=== PATIENT | female | born 1960 | race Caucasian/White ===

== ENCOUNTER 2017-10-26 23:10 | Observation (INO) | payer MEDICARE, OTHER ==
[2017-10-26 23:42] LABS: Basophils % (A) 1 %; Eosinophils # (A) 0.3 k/uL (0-0.7); Eosinophils % (A) 3 %; HCT 35.9 % (34.0-46.0); HGB 12.3 gm/dL (11.4-16.0); Lymphocytes # (A) 1.3 k/uL (1.0-4.8); Lymphocytes % (A) 16 %; MCHC 34.4 g/dL (31.0-37.0); MCV 87.3 fL (80.0-100.0); Mean Platelet Volume 6.2; Monocytes # (A) 0.4 k/uL (0-1.0); Monocytes % (A) 5 %; Neutrophils % (A) 74 %; Platelet Count 395 k/uL (150-450); RBC 4.11 m/uL (3.80-5.40); RDW 12.7 % (11.5-15.5); WBC 8.1 k/uL (3.8-10.6)
[2017-10-26 23:53] LABS: ALT 12 U/L (9-52); AST 10 U/L (14-36); Albumin 3.2 g/dL (3.5-5.0); Alkaline Phosphatase 72 U/L (38-126); Anion Gap 11 mmol/L; Blood Urea Nitrogen 8 mg/dL (7-17); Calcium 8.7 mg/dL (8.4-10.2); Carbon Dioxide 26 mmol/L (22-30); Chloride 103 mmol/L (98-107); Glucose 131 mg/dL (74-99); Lipase 30 U/L (23-300); Potassium 3.6 mmol/L (3.5-5.1); Sodium 140 mmol/L (137-145); Total Bilirubin 0.2 mg/dL (0.2-1.3); Total Protein 5.5 g/dL (6.3-8.2)
[2017-10-26 23:56] LABS: Creatine Kinase 47 U/L (30-135)
[2017-10-26 23:59] LABS: D-Dimer 0.49 mg/L FEU (<0.60); Partial Thromboplastin Time 25.9 sec (22.0-30.0); Prothrombin Time 9.7 sec (9.0-12.0)
--- NOTE | 2017-10-27 00:02 | CT ---
EXAMINATION TYPE: CT brain kaye bird DATE OF EXAM: 10/26/2017 COMPARISON: NONE HISTORY: fall yesterday, neck pain CT DLP: 1259.40 mGycm Automated exposure control for dose reduction was used. TECHNIQUE: CT scan of the head and cervical spine are performed without contrast. FINDINGS: There is a 1 cm area of hypodensity in the left caudate nucleus related to old lacunar in farct. The ventricles have normal size. There is no midline shift. There is no sign of intracranial h emorrhage. The calvarium is intact. There is mild pleural thickening at the lung apices. The cervical vertebra have normal alignment. The re is hypertrophic anterior spurring at C4-5 C5-6. There is no evidence of a fracture. Facet joints a re intact. IMPRESSION: Old lacunar infarct left internal capsule and left caudate nucleus. No acute intracranial abnormality . Spondylosis in the cervical spine as above. No fracture. Apical pleural and pulmonary scarring in bot h upper lobes.
--- NOTE | 2017-10-27 00:04 | XR ---
EXAMINATION TYPE: XR chest 2V DATE OF EXAM: 10/26/2017 COMPARISON: NONE HISTORY: Chest pain TECHNIQUE: Frontal and lateral views of the chest are obtained. FINDINGS: Heart is normal. There is some infiltrate in the right middle lobe. There is no pleural ef fusion. There is no heart failure. There is some mild pleural thickening at the lung apices. There ar e chest leads. There is slight blunting of the costophrenic angles. IMPRESSION: Right middle lobe pneumonia. Apical pleural scarring. No gross heart failure.
[2017-10-27 00:09] LABS: Creatine Kinase MB 0.7 ng/mL (0.0-2.4); Troponin I <0.012 ng/mL (0.000-0.034)
--- NOTE | 2017-10-27 00:09 | ED ---
General Adult HPI - General Chief complaint: Chest Pain Stated complaint: chest pain, neck pain Time Seen by Provider: 10/26/17 23:25 Source: patient, EMS, RN notes reviewed Mode of arrival: EMS Limitations: no limitations - History of Present Illness Initial comments: 57-year-old female presenting for evaluation of chest pain and neck pain. Patient states she had a fall yesterday evening. She is on certain if she lost consciousness but she has had neck pain throughout the day today. She also has some right lateral chest pain. Approximately one hour prior to arrival patient developed sharp anterior chest pain just to the left of the sternum. Pain was nonradiating. No nausea or diaphoresis. Patient denies back pain, denies abdominal pain. Denies vomiting or diarrhea. Patient has no focal neurological complaints. Denies lower extremity swelling or calf tenderness. No history of CAD, no history of DVT or PE. Patient is currently on Percocet and methadone for chronic pain. - Related Data Home Medications Medication Instructions Recorded Confirmed Cyclobenzaprine [Flexeril] 10 mg PO BID 10/26/17 10/26/17 Methadone [Dolophine] 10 mg PO TID 10/26/17 10/26/17 Ranitidine HCl [Zantac] 150 mg PO BID 10/26/17 10/26/17 clonazePAM [KlonoPIN] 1 mg PO BID 10/26/17 10/26/17 oxyCODONE-APAP 10-325MG [Percocet 1 tab PO QID PRN 10/26/17 10/26/17 10-325 mg] Allergies Allergy/AdvReac Type Severity Reaction Status Date / Time Penicillins Allergy Unknown Verified 10/26/17 23:27 Childhood Review of Systems ROS Statement: Those systems with pertinent positive or pertinent negative responses have been documented in the HPI. ROS Other: All systems not noted in ROS Statement are negative. Past Medical History Past Medical History: Hypertension, Musculoskeletal Disorder History of Any Multi-Drug Resistant Organisms: None Reported Past Surgical History: Back Surgery, Cholecystectomy, Hysterectomy, Tonsillectomy Past Psychological History: Anxiety, Depression Smoking Status: Current some day smoker Past Alcohol Use History: None Reported Past Drug Use History: None Reported General Exam Limitations: no limitations General appearance: alert, in no apparent distress Head exam: Present: atraumatic, normocephalic Eye exam: Present: normal appearance, PERRL, EOMI ENT exam: Present: normal exam Neck exam: Present: normal inspection, tenderness (Paraspinal tenderness to palpation, no midline tenderness) Respiratory exam: Present: normal lung sounds bilaterally, chest wall tenderness (Right lateral chest wall tenderness and anterior sternal tenderness to palpation). Absent: respiratory distress, wheezes, rales Cardiovascular Exam: Present: regular rate, normal rhythm GI/Abdominal exam: Present: soft. Absent: distended, tenderness Extremities exam: Present: normal inspection, full ROM, normal capillary refill. Absent: tenderness, pedal edema, calf tenderness Neurological exam: Present: alert, oriented X3, CN II-XII intact. Absent: motor sensory deficit Psychiatric exam: Present: normal affect, normal mood Skin exam: Present: warm, dry, intact. 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 Medical Decision Making - Medical Decision Making 57-year-old female presenting with chief complaint of sharp anterior chest pain. Patient had a fall yesterday and was also complaining of neck pain and was uncertain if she lost consciousness. Head CT was obtained, this is negative for intracranial hemorrhage, does show internal capsule and lacunar infarct which appears old on CT. CT the cervical spine negative for fracture subluxation, there is significant arthritis in the cervical spine. Regarding the patient's chest pain, she has EKG showing normal sinus rhythm with Q waves in the inferior leads, no ST segment elevation. Laboratory studies reveal normal white blood cell count, stable hemoglobin, normal d-dimer, troponin is negative, electrolytes within normal limits. Chest x-ray negative pulmonary edema, she does have right little lobe pneumonia, on questioning she has had a mild cough, no fever, and she is a current smoker. I feel patient will benefit from admission for workup of her multiple issues. Case discussed with Dr. Isidro who will accept admission - Lab Data Result diagrams: 10/26/17 23:30 10/26/17 23:30 Lab Results 10/26/17 10/26/17 10/26/17 Range/Units 23:30 23:30 23:30 WBC 8.1 (3.8-10.6) k/uL RBC 4.11 (3.80-5.40) m/uL Hgb 12.3 (11.4-16.0) gm/dL Hct 35.9 (34.0-46.0) % MCV 87.3 (80.0-100.0) fL MCH 30.0 (25.0-35.0) pg MCHC 34.4 (31.0-37.0) g/dL RDW 12.7 (11.5-15.5) % Plt Count 395 (150-450) k/uL Neutrophils % 74 % Lymphocytes % 16 % Monocytes % 5 % Eosinophils % 3 % Basophils % 1 % Neutrophils # 6.0 (1.3-7.7) k/uL Lymphocytes # 1.3 (1.0-4.8) k/uL Monocytes # 0.4 (0-1.0) k/uL Eosinophils # 0.3 (0-0.7) k/uL Basophils # 0.0 (0-0.2) k/uL PT (9.0-12.0) sec INR (<1.2) APTT (22.0-30.0) sec D-Dimer (<0.60) mg/L FEU Sodium 140 (137-145) mmol/L Potassium 3.6 (3.5-5.1) mmol/L Chloride 103 (98-107) mmol/L Carbon Dioxide 26 (22-30) mmol/L Anion Gap 11 mmol/L BUN 8 (7-17) mg/dL Creatinine 0.70 (0.52-1.04) mg/dL Est GFR (CKD-EPI)AfAm >90 (>60 ml/min/1.73 sqM) Est GFR (CKD-EPI)NonAf >90 (>60 ml/min/1.73 sqM) Glucose 131 H (74-99) mg/dL Calcium 8.7 (8.4-10.2) mg/dL Magnesium 2.0 (1.6-2.3) mg/dL Total Bilirubin 0.2 (0.2-1.3) mg/dL AST 10 L (14-36) U/L ALT 12 (9-52) U/L Alkaline Phosphatase 72 (38-126) U/L Total Creatine Kinase 47 (30-135) U/L CK-MB (CK-2) 0.7 (0.0-2.4) ng/mL CK-MB (CK-2) Rel Index 1.5 Troponin I <0.012 (0.000-0.034) ng/mL Total Protein 5.5 L (6.3-8.2) g/dL Albumin 3.2 L (3.5-5.0) g/dL Lipase 30 (23-300) U/L 10/26/17 Range/Units 23:30 WBC (3.8-10.6) k/uL RBC (3.80-5.40) m/uL Hgb (11.4-16.0) gm/dL Hct (34.0-46.0) % MCV (80.0-100.0) fL MCH (25.0-35.0) pg MCHC (31.0-37.0) g/dL RDW (11.5-15.5) % Plt Count (150-450) k/uL Neutrophils % % Lymphocytes % % Monocytes % % Eosinophils % % Basophils % % Neutrophils # (1.3-7.7) k/uL Lymphocytes # (1.0-4.8) k/uL Monocytes # (0-1.0) k/uL Eosinophils # (0-0.7) k/uL Basophils # (0-0.2) k/uL PT 9.7 (9.0-12.0) sec INR 1.0 (<1.2) APTT 25.9 (22.0-30.0) sec D-Dimer 0.49 (<0.60) mg/L FEU Sodium (137-145) mmol/L Potassium (3.5-5.1) mmol/L Chloride (98-107) mmol/L Carbon Dioxide (22-30) mmol/L Anion Gap mmol/L BUN (7-17) mg/dL Creatinine (0.52-1.04) mg/dL Est GFR (CKD-EPI)AfAm (>60 ml/min/1.73 sqM) Est GFR (CKD-EPI)NonAf (>60 ml/min/1.73 sqM) Glucose (74-99) mg/dL Calcium (8.4-10.2) mg/dL Magnesium (1.6-2.3) mg/dL Total Bilirubin (0.2-1.3) mg/dL AST (14-36) U/L ALT (9-52) U/L Alkaline Phosphatase (38-126) U/L Total Creatine Kinase (30-135) U/L CK-MB (CK-2) (0.0-2.4) ng/mL CK-MB (CK-2) Rel Index Troponin I (0.000-0.034) ng/mL Total Protein (6.3-8.2) g/dL Albumin (3.5-5.0) g/dL Lipase (23-300) U/L Disposition Clinical Impression: Chest pain, Lacunar infarction Disposition: ADMITTED IP TO THIS [facility] Condition: Stable Referrals: None,Stated [Primary Care Provider] - 1-2 days Decision to Admit Reason: Admit from EC Decision Date: 10/27/17 Decision Time: 01:01
[2017-10-27] MEDS ORDERED: NALOXONE 0.4 MG/ML 1 ML VIAL IV PRN (01:02)
[2017-10-27 02:09] VITALS: BMI 23.6
[2017-10-27] MEDS ORDERED: clonazePAM 1 MG TAB PO STA (02:30)
[2017-10-27] MEDS: oxyCODONE-APAP 10-325MG 1 EACH TAB PO PRN ×2 (02:35→08:31)
--- NOTE | 2017-10-27 05:32 | P.HPIM ---
History of Present Illness H&P Date: 10/27/17 Chief Complaint: Left-sided chest pain 57-year-old female with history of low blood pressure, musculoskeletal pain. Presented to the ER due to sudden onset left-sided chest pain was described as sharp 8 out of 10 in severity radiating to the left neck not associated with any dizziness lightheadedness no nausea no vomiting no shortness of breath no sweating. The pain lasted 45 minutes and resolved after taking aspirin in the ambulance. The pain was not precipitated by certain activity she was just trying to relax getting ready to go to bed. She said that she had similar pains before and again they were not related to any certain activity however this time was associated with pain radiating to the neck that's when she got concerned. Again she denies any other associated symptoms like weakness numbness or tingling in the upper extremities or lower extremities. In the ED EKG was unremarkable, cardiac enzymes are negative and vital signs are stable however blood pressure is running in the high 90s On the other hand patient casually reported frequent falls, she reported that she falls at least 2-3 times a month, she does not remember the falls exactly however she wakes up on the floor or in random places around her house realizing that she probably fell and spent some time on the floor, one time she realizes she spent at least 2 hours laying down on the floor. These falls are not associated with any injuries per the patient, denies any associated loss of bladder or bowel control, denies any tongue biting. She denies any symptoms prior to the fall or after regaining consciousness. She was feeling completely normal after regaining consciousness without any associated dizziness lightheadedness nausea or vomiting or any sweating or chest pain or any trouble breathing. She denies any focal neurologic deficits like numbness or tingling or weakness in any of her extremities. She has never discussed that with her regular physician. And she denies any specific timing of these falls but just randomly during the day. Patient lives alone and she takes pain medications and muscle relaxants due to chronic musculoskeletal pain , , CODE STATUS was discussed with the patient, she elected a no CODE STATUS and she named her daughter Camille López as a surrogate decision-maker Review of Systems CoChronic low back painnstitutional: Patient denies fever, denies chills, denies night sweating, denies significant weight changes Eyes: Patient denies visual changes, denies eye pain ENT: Patient denies ear pain, denies rhinorrhea, denies sore throat Cardiovascular: Patient denies exertional dyspnea, denies peripheral leg edema, denies orthopnea, denies paroxysmal nocturnal dyspnea Respiratory:Patient denies cough, denies wheezing, denies shortness of breath Gastrointestinal: Patient denies diarrhea, denies constipation, denies nausea , denies vomiting, denies abdominal pain Genitourinary: Patient denies dysuria, denies hematuria, denies changes in urinary habits, denies genital lesions Musculoskeletal: Patient chronic low back pain Psychiatric: Patient denies changes in mood or memory, denies suicidal ideation, denies anxiety Endocrine: Patient denies heat intolerance, denies cold intolerance, denies excessive thirst, denies polyuria Neurological: Patient denies focal neurologic deficits, denies weakness, denies numbness, denies tingling, Reports frequent falls Hem/Lymphatic: Patient denies bleeding tendency, denies bruising, denies swollen lymph glands Allergic/Immun: Patient denies recent allergic reactions Skin: Patient denies rashes, denies pruritis, denies ulcers Past Medical History Past Medical History: Musculoskeletal Disorder Additional Past Medical History / Comment(s): hypotension History of Any Multi-Drug Resistant Organisms: None Reported Past Surgical History: Back Surgery, Cholecystectomy, Hysterectomy, Tonsillectomy Additional Past Surgical History / Comment(s): back surgery x3 Past Anesthesia/Blood Transfusion Reactions: No Reported Reaction Past Psychological History: Anxiety, Depression Smoking Status: Current some day smoker Past Alcohol Use History: None Reported Additional Past Alcohol Use History / Comment(s): pt states she smoke about 5 cigarettes a day and states intent to quit now that she is hospitalized Past Drug Use History: None Reported - Past Family History Mother History Unknown: Yes Family Medical History: COPD, Diabetes Mellitus Additional Family Medical History / Comment(s): pt states her mother is 80yo. Father History Unknown: Yes Family Medical History: Cancer Additional Family Medical History / Comment(s): pt states father of lung cancer at age 67. Medications and Allergies Home Medications Medication Instructions Recorded Confirmed Type Cyclobenzaprine [Flexeril] 10 mg PO BID 10/26/17 10/26/17 History Methadone [Dolophine] 10 mg PO TID 10/26/17 10/26/17 History Ranitidine HCl [Zantac] 150 mg PO BID 10/26/17 10/26/17 History clonazePAM [KlonoPIN] 1 mg PO BID 10/26/17 10/26/17 History oxyCODONE-APAP 10-325MG [Percocet 1 tab PO QID PRN 10/26/17 10/26/17 History 10-325 mg] Allergies Allergy/AdvReac Type Severity Reaction Status Date / Time Penicillins Allergy Unknown Verified 10/26/17 23:27 Childhood Physical Exam Vitals: Vital Signs Temp Pulse Pulse Resp BP BP Pulse Ox 10/27/17 04:00 79 16 10/27/17 01:38 97.8 F 10/27/17 01:32 97.1 F L 81 16 99/54 98 10/27/17 01:29 81 15 97/54 97 10/27/17 00:45 85 17 100/59 96 10/26/17 23:35 86 10/26/17 23:13 97.3 F L 86 18 115/62 95 Intake and Output 10/26/17 10/26/17 10/27/17 14:59 22:59 06:59 Other: Voiding Method Toilet Weight 58.5 kg Constitutional: No acute distress, conversant, pleasant Eyes: Anicteric sclerae, moist conjunctiva, no lid-lag Pupils equal round reactive to light ENMT: NC/AT Oropharynx clear, no erythema, exudates Neck: Supple, FROM, no masses, or JVD No carotid bruits No thyromegaly Lungs: Clear to auscultation Clear to percussion Normal respiratory effort, no accessory muscle use Cardiovascular: Heart regular in rate and rhythm, No murmurs, gallops, or rubs No peripheral edema Abdominal: Soft Nontender, no guarding, rebound or rigidity Abdomen moving with respiration Normoactive bowel sounds No hepatomegaly, No splenomegaly No palpable mass No abdominal wall hernia noted Skin: Normal temperature, tone, texture, turgor No induration No subcutaneous nodules No rash, lesions No ulcers Extremities: No digital cyanosis No clubbing Pedal pulses intact and symmetrical Radial pulses intact and symmetrical No calf tenderness Psychiatric: Alert and oriented to person, place and time Appropriate affect fair judgment Neuro Muscles Strength 4/5 in all 4 extremities Sensation to light touch grossly present throughout Cranial nerves II-XII grossly intact No focal sensory deficits Lymphatics: no palpable cervical or supraclavicular , or inguinal lymph nodes Results CBC & Chem 7: 10/26/17 23:30 10/26/17 23:30 Labs: Abnormal Lab Results - Last 24 Hours (Table) 10/26/17 Range/Units 23:30 Glucose 131 H (74-99) mg/dL AST 10 L (14-36) U/L Total Protein 5.5 L (6.3-8.2) g/dL Albumin 3.2 L (3.5-5.0) g/dL Thrombosis Risk Factor Assmnt - Choose All That Apply Each Factor Represents 1 point: Age 41-60 years, Medical pt on bed rest Other Risk Factors: No Other congenital or acquired thrombophilia - If yes, enter type in comment: No Thrombosis Risk Factor Assessment Total Risk Factor Score: 2 Thrombosis Risk Factor Assessment Level: Low Risk Assessment and Plan Assessment: 57-year-old female with past medical history of chronic pain on multiple pain medications and muscle relaxants, and history of hypotension. Presented due to sudden onset left-sided chest pain radiating to the neck without any other associated symptoms. She also mentioned casually that she falls frequently with too many falls over the past year. CAT scan of the head did show old lacunar infarct patient was admitted for further workup. Plan: # Syncope with frequent falls Rule out cardiac versus neurologic sources Patient also on multiple pain medications and muscle relaxants No reported injuries with these falls Cardiac monitoring Check EEG Computed tomography scan of the head showed old lacunar infarct Neurology consultation Continue with neuro checks and fall precautions PT eval #Left-sided chest pain atypical features, most likely noncardiac Troponin is negative EKG unremarkable Cardiology consult to rule out ACS #Hypotension Check orthostatic vital signs #DVT prophylaxis Heparin subcu 3 times a day Surrogate decision-maker: patient daughter Camille López CODE STATUS: No code DVT prophylaxis: heparin subcu 3 times a day Discussed with: Patient, ER, RN Anticipated discharge: [address]: pending physical therapy evaluation A total of 50 minutes was spent on the care of this complex patient more than 50 % of the time was spent in counseling and care coordination.
[2017-10-27 07:04] LABS: Creatine Kinase 38 U/L (30-135)
[2017-10-27] MEDS ORDERED: SODIUM CHLORIDE 0.9% 1,000 ML IV SCH (07:15)
[2017-10-27 07:17] LABS: Creatine Kinase MB 0.5 ng/mL (0.0-2.4); Troponin I <0.012 ng/mL (0.000-0.034)
[2017-10-27] MEDS ORDERED: HEPARIN SODIUM,PORCINE 5,000 UNIT/ML 1 ML VIAL SQ SCH (08:00)
[2017-10-27 08:59] VITALS: BP 108/60; PULSE 70; RESP 14; TEMP 97
[2017-10-27] MEDS ORDERED: FAMOTIDINE 20 MG TAB PO SCH (09:00)
[2017-10-27] MEDS ORDERED: ASPIRIN 325 MG TAB PO SCH (09:00)
[2017-10-27] MEDS ORDERED: NICOTINE 14MG/24HR PATCH TRANSDERM SCH (09:00)
[2017-10-27] MEDS ORDERED: CYCLOBENZAPRINE 10 MG TAB PO SCH (09:00)
[2017-10-27] MEDS ORDERED: METHADONE 10 MG TAB PO SCH (09:00)
[2017-10-27] MEDS ORDERED: clonazePAM 1 MG TAB PO SCH (09:00)
[2017-10-27] MEDS ORDERED: DOBUTamine DRIP for NUC MED 250 MG in DEXTROSE/WATER 1 250ML.BAG IV ONE (09:19)
[2017-10-27 09:25] LABS: T4, Free (Free Thyroxine) 1.34 ng/dL (0.78-2.19)
--- NOTE | 2017-10-27 09:43 | CONS ---
CONSULTATION CHIEF COMPLAINT: Chest pain. Randa is a 57-year-old lady who comes to hospital complaining of precordial chest pain. She describes it as a sharp precordial chest pain associated with some dizziness and lightheadedness, but there was no shortness of breath, diaphoresis. There were no clear-cut relieving or exacerbating factors. At the time of my evaluation, patient is pain free, hemodynamically stable and in no apparent distress. EKG does not reveal ischemic changes. Cardiac enzymes have been negative. She has chronic back pain and is on multiple medications for it. There is also history of recurrent falls. PAST MEDICAL HISTORY: Past medical history is negative for hypertension, diabetes, dyslipidemia. MEDICATIONS: Medications include Percocet, Klonopin, Zantac and Flexeril. ALLERGIES: Allergic to PENICILLIN. FAMILY HISTORY: Family history is negative for premature coronary artery disease. SOCIAL HISTORY: Negative for smoking, EtOH abuse, or drug abuse. REVIEW OF SYSTEMS: HEENT is unremarkable. CARDIAC: As described above. RESPIRATORY: Negative. GI: Negative. GENITOURINARY: Negative. ALLERGIES/IMMUNOLOGICAL: Negative. SKIN: Negative. MUSCULOSKELETAL: Significant for arthritis. PSYCHOSOCIAL: Negative. ENDOCRINE: Negative. HEMATOLOGICAL: Negative. DERM: Negative. CONSTITUTIONAL: Negative. ONCOLOGICAL: Negative. Rest of the system review is not relevant. PHYSICAL EXAMINATION: On exam, patient is comfortable at rest. Vital signs are stable. There is no jugular venous distention. Carotid upstroke is normal. There is no bruit. Chest exam reveals good air entry bilaterally. Heart exam reveals first and second heart sounds. No gallop. No murmur. No rub. Abdomen is soft, nontender. Examination of extremities did not reveal any edema. Peripheral pulses are felt. LABS: Labs show that the hemoglobin is 12.3, platelet count is 395. Creatinine is 0.7. Potassium is 3.6. Two sets of troponins are negative. EKG is normal. ASSESSMENT: 1. Precordial chest pain. 2. Chronic back pain. PLAN: Patient has sharp atypical chest pain. Will have a dobutamine echo today. If this is negative, she can be discharged home and outpatient followup arranged with her own primary care physician. The patient has history of recurrent falls, but they seem mostly related to all the pain medications that she is taking. There is no history of injury. She states sometimes she suddenly wakes up and has lost you know a couple of hours from her day. It seems most likely she is sleeping at that time, but will obtain an echo, stress test and decide on further course of action. DUNCANL / IJN: [id number] /
--- NOTE | 2017-10-27 12:05 | ECHOF ---
Referral Reason:lacunar infarct MEASUREMENTS -------- HEIGHT: 157.5 cm WEIGHT: 58.1 kg BP: 93/52 IVSd: 0.9 cm (0.6 - 1.1) LVIDd: 3.2 cm (3.9 - 5.3) LVPWd: 0.9 cm (0.6 - 1.1) IVSs: 1.0 cm LVIDs: 1.7 cm LVPWs: 1.2 cm LAESV Index (A-L): 15.88 ml/m Ao Diam: 3.0 cm (2.0 - 3.7) AV Cusp: 1.7 cm (1.5 - 2.6) LA Diam: 2.6 cm (2.7 - 3.8) MV EXCURSION: 14.577 mm (> 18.000) MV EF SLOPE: 102 mm/s (70 - 150) EPSS: 0.6 cm MV E Erick: 0.83 m/s MV DecT: 201 ms MV A Erick: 0.78 m/s MV E/A Ratio: 1.06 RAP: 5.00 mmHg RVSP: 10.57 mmHg FINDINGS -------- Sinus rhythm. This was a technically good study. The left ventricular size is normal. Left ventricular wall thickness is normal. Overall left vent ricular systolic function is normal with, an EF between 55 - 60 %. The right ventricle is normal in size and function. The left atrium is normal in size. The right atrium is normal in size. Aortic valve is trileaflet and is mildly thickened. The mitral valve leaflets are mildly thickened. There is trace mitral regurgitation. Trace tricuspid regurgitation present. The right ventricular systolic pressure, as measured by Dopp ler, is 10.57mmHg. Pulmonic valve appears structurally normal. The aortic root size is normal. Normal inferior vena cava with normal inspiratory collapse consistent with estimated right atrial pre ssure of 5 mmHg. The pericardium is normal. CONCLUSIONS -------- 1. Sinus rhythm. 2. This was a technically good study. 3. The left ventricular size is normal. 4. Left ventricular wall thickness is normal. 5. Overall left ventricular systolic function is normal with, an EF between 55 - 60 %. 6. The right ventricle is normal in size and function. 7. The left atrium is normal in size. 8. The right atrium is normal in size. 9. Aortic valve is trileaflet and is mildly thickened. 10. The mitral valve leaflets are mildly thickened. 11. There is trace mitral regurgitation. 12. Trace tricuspid regurgitation present. 13. The right ventricular systolic pressure, as measured by Doppler, is 10.57mmHg. 14. Pulmonic valve appears structurally normal. 15. The aortic root size is normal. 16. Normal inferior vena cava with normal inspiratory collapse consistent with estimated right atrial pressure of 5 mmHg. 17. The pericardium is normal. BACTERIOLOGY TEACHER: Nona Vidal RDCS
--- NOTE | 2017-10-27 13:10 | P.PN ---
Subjective Progress Note Date: 10/27/17 Patient complaining of fatigue is pretty sleepy but is arousable, seen by cardiology earlier today. Denies any chest pain at present does have chronic back pain. No acute events Objective - Vital Signs Vital signs: Vital Signs Temp 97 F L 10/27/17 08:00 Pulse 70 10/27/17 08:00 Resp 14 10/27/17 08:00 BP 108/60 10/27/17 08:00 Pulse Ox 95 10/27/17 08:00 Intake & Output 10/26/17 10/27/17 10/27/17 18:59 06:59 18:59 Weight 58.5 kg Other: Voiding Method Toilet Toilet # Voids 1 - Exam Constitutional: No acute distress, conversant, pleasant Eyes: Anicteric sclerae, moist conjunctiva, no lid-lag, PERRLA ENMT: NC/AT,Oropharynx clear, no erythema, exudates Neck:Supple, FROM, no masses, or JVD, No carotid bruits; No thyromegaly Lungs: Clear to auscultation, Clear to percussion, Normal respiratory effort, no accessory muscle use Cardiovascular: Heart regular in rate and rhythm, No murmurs, gallops, or rubs no peripheral edema Abdominal: Soft Nontender, nom distended, no guarding, no rebound or rigidity, Normoactive bowel sounds No hepatomegaly, No splenomegaly, No palpable mass No abdominal wall hernia noted Skin: Normal temperature, tone, texture, turgor, No induration No subcutaneous nodules, No rash, lesions, No ulcers Extremities:No digital cyanosis No clubbing, Pedal pulses intact and symmetrical Radial pulses intact and symmetrical Normal gait and station, No calf tenderness Psychiatric: Alert and oriented to person, place and time, Appropriate affect Intact judgement Neuro: Muscles Strength 5/5 in all 4 extremities, Sensation to light touch grossly present throughout, Cranial nerves II-XII grossly intact. No focal sensory deficits - Labs CBC & Chem 7: 10/26/17 23:30 10/26/17 23:30 Labs: Abnormal Lab Results - Last 24 Hours (Table) 10/26/17 10/27/17 Range/Units 23:30 06:10 Glucose 131 H (74-99) mg/dL AST 10 L (14-36) U/L Total Protein 5.5 L (6.3-8.2) g/dL Albumin 3.2 L (3.5-5.0) g/dL TSH 0.142 L (0.465-4.680) mIU/L Assessment and Plan (1) Atypical chest pain Current Visit: Yes Status: Resolved Code(s): R07.89 - OTHER CHEST PAIN SNOMED Code(s): 730037951 (2) Syncope Narrative/Plan: * Likely secondary to polypharmacy ongoing use of opiates methadone and muscle relaxants * EEG and neurology consultation pending, will order carotid Dopplers and check orthostatic vital signs * On echocardiogram the patient has a normal ejection fraction of 55-60% Current Visit: Yes Status: Acute Code(s): R55 - SYNCOPE AND COLLAPSE SNOMED Code(s): 343374037 (3) History of CVA (cerebrovascular accident) Narrative/Plan: * CT of the head showing old lacunar infarct of the left internal capsule and left caudate nucleus, with no acute infarcts * Awaiting neurology consultation recommendations * Continue with aspirin 325mg by mouth daily Current Visit: Yes Status: Acute Code(s): Z86.73 - PRSNL HX OF TIA (TIA), AND CEREB INFRC W/O RESID DEFICITS SNOMED Code(s): 194583290 (4) Hypotension Current Visit: Yes Status: Acute Code(s): I95.9 - HYPOTENSION, UNSPECIFIED SNOMED Code(s): 11118414
--- NOTE | 2017-10-27 15:36 | P.DS ---
Providers Date of admission: 10/27/17 01:02 Expected date of discharge: 10/27/17 Attending physician: Héctor Isidro MD Consults: 10/27/17 01:03 Consult Physician Routine Consulting Provider: Charan Campos Consult Reason/Comments: cp Do you want consulting provider notified?: Yes 10/27/17 01:04 Consult Physician Routine Consulting Provider: Sanjay Riley Consult Reason/Comments: Lacunar infarct Do you want consulting provider notified?: Yes, Notify in am Primary care physician: Stated None - Discharge Diagnosis(es) (1) Left against medical advice Status: Acute (2) Atypical chest pain Status: Resolved (3) Syncope Status: Acute (4) History of CVA (cerebrovascular accident) Status: Acute (5) Hypotension Status: Acute Hospital Course: The patient is a 57-year-old female that was admitted and placed in observation for atypical chest pain and syncope she had a complete cardiac workup which included EKG cardiac enzymes that were negative for any sedation of any acute ischemia, she had a echocardiogram that showed ejection fraction of 55-60%. She was seen by cardiology Dr. Campos and cleared, was thought that her syncope was secondary to polypharmacy as the patient was taking methadone and opiates and muscle relaxants for her chronic back pain. CT of her head and she did show old lacunar infarct of the left internal capsule and left caudate nucleus The patient was scheduled to be seen by neurology and to have a EEG and carotid Dopplers, however she decided to leave AGAINST MEDICAL ADVICE prior to completing her workup. This discharge process took less than 30 minutes Patient Condition at Discharge: Stable Plan - Discharge Summary Discharge Rx Participant: No New Discharge Prescriptions: No Action clonazePAM [KlonoPIN] 1 mg PO BID Ranitidine HCl [Zantac] 150 mg PO BID Methadone [Dolophine] 10 mg PO TID Cyclobenzaprine [Flexeril] 10 mg PO BID oxyCODONE-APAP 10-325MG [Percocet 10-325 mg] 1 tab PO QID PRN PRN Reason: Pain Discharge Medication List Cyclobenzaprine [Flexeril] 10 mg PO BID 10/26/17 [History] Methadone [Dolophine] 10 mg PO TID 10/26/17 [History] Ranitidine HCl [Zantac] 150 mg PO BID 10/26/17 [History] clonazePAM [KlonoPIN] 1 mg PO BID 10/26/17 [History] oxyCODONE-APAP 10-325MG [Percocet 10-325 mg] 1 tab PO QID PRN 10/26/17 [History] Follow up Appointment(s)/Referral(s): None,Stated [Primary Care Provider] - 1-2 days Discharge Disposition: Left Against Medical Advice
[2017-10-27] MEDS ORDERED: ATORVASTATIN 20 MG TAB PO SCH (21:00)
== END 2017-10-27 14:10 | disposition left against medical advice (07) ==
LOC: EC 23:10 → 6SEL 10-27 01:02
PROVIDERS: ADMIT Internal Medicine; ATTEND Internal Medicine
DX: R07.89 Other chest pain (principal); R42 Dizziness and giddiness; M54.2 Cervicalgia; R07.2 Precordial pain; M54.9 Dorsalgia, unspecified; M79.1 Myalgia; R55 Syncope and collapse; Z53.21 Procedure and treatment not carried out due to patient leaving prior to being seen by health care provider; Z86.73 Personal history of transient ischemic attack (TIA), and cerebral infarction without residual deficits; I95.9 Hypotension, unspecified; G89.29 Other chronic pain; R29.6 Repeated falls; Z66 Do not resuscitate; F41.9 Anxiety disorder, unspecified; F32.9 Major depressive disorder, single episode, unspecified; F17.210 Nicotine dependence, cigarettes, uncomplicated; Z83.3 Family history of diabetes mellitus; Z82.5 Family history of asthma and other chronic lower respiratory diseases; Z80.1 Family history of malignant neoplasm of trachea, bronchus and lung; Z79.899 Other long term (current) drug therapy; Z79.891 Long term (current) use of opiate analgesic; Z88.0 Allergy status to penicillin; W19.XXXA Unspecified fall, initial encounter
CPT/HCPCS: 99285; 36415; 93005; 93306; 97161; 85379; 84439; 80061; 80053; 84443; 82607; 82550 ×2; 82553 ×2; 83690; 83735; 84484 ×2; 85025; 85610; 85730; 71046; 72125; 70450; G0378; S4990; J1644; S0109